=== PATIENT | female | born 1975 | race Caucasian/White ===

== ENCOUNTER 2018-07-31 11:24 | Emergency (ER) | payer OTHER ==
[2018-07-31 12:07] LABS: BILIRUBIN,URINE NEGATIVE (NEGATIVE); GLUCOSE, URINE (UA) NEGATIVE (NEGATIVE); KETONES,URINE (UA) NEGATIVE (NEGATIVE); LEUKOCYTE ESTERASE, URINE TRACE (NEGATIVE); NITRITE,URINE NEGATIVE (NEGATIVE); OCCULT BLOOD,URINE TRACE-LYSE (NEGATIVE); PH,URINE 6.5 PH (5.0-7.5); PROTEIN,URINE NEGATIVE (NEGATIVE); UROBILINOGEN,URINE 0.2 (NORMAL) E.U./dL (NORMAL)
[2018-07-31 12:08] LABS: CLARITY,URINE HAZY (CLEAR)
[2018-07-31 12:13] LABS: HCG UR QUAL NEGATIVE
[2018-07-31 12:19] LABS: BACTERIA,URINE Rare /HPF (None Seen); RBC,URINE 0-5 /HPF (0-5); SQUAMOUS EPITHELIAL CELL,UR RARE Squamous (<= Few)
--- NOTE | 2018-07-31 12:49 | ED Physician Documentation ---
History of Present Illness - Stated complaint Stated Complaint: FEMALE - Chief complaint Chief Complaint: General - History obtained from History obtained from: Patient - History of Present Illness Timing: Yesterday Pain level max: 3 Pain level now: 3 Improved by: nothing Worsened by: urination - Additonal information Additional information: 43-year-old female who presents to the emergency department with dysuria, urinary frequency since yesterday. No fevers. No vomiting. No vaginal bleeding or discharge. No possibility of . Not breast-feeding. Has had UTIs in the past. Review of Systems Constitutional: denies: Fever, Chills Throat: denies: Sore throat Cardiac: denies: Chest pain / pressure Respiratory: denies: Cough GI: denies: Abdominal Pain, Nausea, Vomiting, Diarrhea : reports: Dysuria, Frequency, Hesitancy. denies: Now EGA Skin: denies: Rash Musculoskeletal: denies: Neck pain, Back pain PD PAST MEDICAL HISTORY - Past Medical History Past Medical History: Yes Cardiovascular: None Respiratory: None Neuro: Other Endocrine/Autoimmune: None GI: None TUBE ROOM CASHIER: None : None HEENT: None Psych: None Musculoskeletal: None Derm: None - Past Surgical History Past Surgical History: Yes Ortho: Other /TUBE ROOM CASHIER: section - Present Medications Home Medications: Ambulatory Orders Medication Instructions Recorded Confirmed Nitrofurantoin Monohyd/M-Cryst 100 mg PO BID #10 capsule 07/31/18 [Macrobid 100 mg Capsule] Phenazopyridine HCl [Pyridium] 200 mg PO TID PRN #6 tablet 07/31/18 - Allergies Allergies/Adverse Reactions: Allergies Allergy/AdvReac Type Severity Reaction Status Date / Time Penicillins Allergy Anaphylaxis Verified 07/31/18 11:32 Sulfa (Sulfonamide AdvReac Unknown Verified 07/31/18 11:32 Antibiotics) - Social History Does the pt smoke?: No Smoking Status: Former smoker Does the pt drink ETOH?: No Does the pt have substance abuse?: No - Immunizations Immunizations are current?: Yes - POLST Patient has POLST: No PD ED PE NORMAL - Vitals Vital signs reviewed: Yes - General General: Alert and oriented X 3, No acute distress - HEENT HEENT: Moist mucous membranes - Neck Neck: Supple, no meningeal sign - Cardiac Cardiac: RRR - Respiratory Respiratory: No respiratory distress, Clear bilaterally - Abdomen Abdomen: Soft, Non tender, Non distended - Back Back: No CVA TTP - Derm Derm: Warm and dry - Neuro Neuro: Alert and oriented X 3 Results - Vitals Vitals: Vital Signs - 24 hr 07/31/18 11:30 Temperature 36.1 C L Heart Rate 88 Respiratory 15 Rate Blood Pressure 125/77 O2 Saturation 100 - Labs Labs: Laboratory Tests 07/31/18 11:42 Urine Color YELLOW Urine Clarity HAZY Urine pH 6.5 Ur Specific [place] 1.020 Urine Protein NEGATIVE Urine Glucose (UA) NEGATIVE Urine Ketones NEGATIVE Urine Occult Blood TRACE-LYSE Urine Nitrite NEGATIVE Urine Bilirubin NEGATIVE Urine Urobilinogen 0.2 (NORMAL) Ur Leukocyte Esterase TRACE H Urine RBC 0-5 Urine WBC 11-25 H Ur Squamous Epith Cells RARE Squamous Urine Bacteria Rare Ur Microscopic Review INDICATED Urine Culture Comments INDICATED Urine HCG, Qual NEGATIVE PD MEDICAL DECISION MAKING - ED course Complexity details: reviewed results, considered differential, d/w patient ED course: 43-year-old female with a UTI. Will place on antibiotics. Will follow up with her doctor for further care. She is well-appearing, nontoxic. Afebrile. No evidence of pyelonephritis or sepsis. Patient counseled regarding signs and symptoms for which I believe and urgent re-evaluation would be necessary. Patient with good understanding of and agreement to plan and is comfortable going home at this time This document was made in part using voice recognition software. While efforts are made to proofread this document, sound alike and grammatical errors may occur. Departure - Departure Disposition: 01 Home, Self Care Clinical Impression: UTI (urinary tract infection) Qualifiers: Urinary tract infection type: acute cystitis Hematuria presence: without hematuria Qualified Code(s): N30.00 - Acute cystitis without hematuria Condition: Good Instructions: ED UTI Cystitis Female Follow-Up: your,doctor in 1 week if not better [Other] Prescriptions: Nitrofurantoin Monohyd/M-Cryst [Macrobid 100 mg Capsule] 100 mg PO BID #10 capsule Phenazopyridine HCl [Pyridium] 200 mg PO TID PRN #6 tablet PRN Reason: dysuria Comments: Take all antibiotics until gone. Return if you worsen. Follow-up with your doctor if you are not improved within 1 week
[2018-07-31 13:15] VITALS: BP 127/81
== END 2018-07-31 13:15 | disposition home or self-care (01) ==
LOC: ED 11:24
DX: N30.00 Acute cystitis without hematuria (principal); Z87.891 Personal history of nicotine dependence
CPT/HCPCS: 81001; 81003; 81025; 87086; 99283

== ENCOUNTER 2019-01-07 20:42 | Emergency (ER) | payer OTHER ==
[2019-01-07] MEDS ORDERED: SODIUM CHLORIDE 0.9% 1,000 ML IV ONE (20:58)
--- NOTE | 2019-01-07 21:03 | ED Physician Documentation ---
PD HPI ABD PAIN - Stated complaint Stated Complaint: R SIDE/GROIN PAIN - Chief complaint Chief Complaint: Abd Pain - History obtained from History obtained from: Patient - History of Present Illness Timing - onset: Today Timing - duration: Hours (6) Timing - details: Abrupt onset Pain level max: 10 Pain level now: 8 Quality: Pain Radiation: Right flank (Radiates to the right lower quadrant.) Improved by: Laying still Associated symptoms: Nausea, Diarrhea, Dizzy. No: Fever, Vomiting, Dysuria, Hematuria, Chest pain, Near syncope / syncope, Vaginal bleeding Recently seen: Not recently seen - Additional information Additional information: This is a 43-year-old woman who presents with her complains that she was laying in bed on her left side went to turn of the right side had a sudden onset of excruciating pain in the right flank area that wrapped around quickly and radiated down into the right lower quadrant. This occurred around 3:00 this afternoon was a 10 out of 10 but is now down to 7-8 out of 10 and is just been waxing and waning since it started. She thought she might have to have a bowel movement so she went into the bathroom had some mild diarrhea but did not see any blood in it and the pain did not lessen. She is been nauseous but no vomiting. No dysuria or hematuria. She denies stating her last menstrual period was 9 days ago. She has had prior C-sections and removals of neuroma but no other abdominal surgery. She did not take anything for the pain today. Review of Systems Constitutional: denies: Fever Throat: denies: Sore throat Cardiac: denies: Chest pain / pressure, Palpitations Respiratory: denies: Dyspnea, Cough GI: reports: Abdominal Pain, Nausea, Diarrhea. denies: Vomiting, Bloody / black stool : denies: Dysuria, Frequency, Hematuria Skin: denies: Rash Musculoskeletal: reports: Back pain PD PAST MEDICAL HISTORY - Past Medical History Cardiovascular: None Respiratory: None Neuro: Other Endocrine/Autoimmune: None GI: None U.S. REPRESENTATIVE: None : None HEENT: None Psych: None Musculoskeletal: None Derm: None - Past Surgical History Past Surgical History: Yes Ortho: Other /U.[employer]. REPRESENTATIVE: section - Present Medications Home Medications: Ambulatory Orders Medication Instructions Recorded Confirmed Hydrocodone/Acetaminophen 1 - 2 each PO Q6H PRN #14 tablet 01/07/19 [Hydrocodon-Acetaminophen 5-325] Tamsulosin [Flomax] 0.4 mg PO DAILY #10 capsule 01/07/19 - Allergies Allergies/Adverse Reactions: Allergies Allergy/AdvReac Type Severity Reaction Status Date / Time Penicillins Allergy Anaphylaxis Verified 01/07/19 20:54 Sulfa (Sulfonamide AdvReac Unknown Verified 01/07/19 20:54 Antibiotics) - Social History Does the pt smoke?: No Smoking Status: Former smoker Does the pt drink ETOH?: No Does the pt have substance abuse?: No - Immunizations Immunizations are current?: Yes - POLST Patient has POLST: No PD ED PE NORMAL - Vitals Vital signs reviewed: Yes - General General: Alert and oriented X 3, No acute distress, Well developed/nourished - HEENT HEENT: Atraumatic, PERRL, Moist mucous membranes - Cardiac Cardiac: RRR, No murmur - Respiratory Respiratory: No respiratory distress, Clear bilaterally - Abdomen Abdomen: Normal bowel sounds, Other (Tenderness with some guarding voluntary in the right upper and lower quadrants.) - Derm Derm: Normal color, No rash - Extremities Extremities: No deformity, No edema - Neuro Neuro: Alert and oriented X 3, recreation therapy teacher 2-12 intact, No motor deficit, No sensory deficit, Normal speech - Psych Psych: Normal mood, Normal affect Results - Vitals Vitals: Vital Signs - 24 hr 01/07/19 20:50 Temperature 37 C Heart Rate 72 Respiratory 16 Rate Blood Pressure 142/90 H O2 Saturation 100 Oxygen O2 Source Room air - Labs Labs: Laboratory Tests 01/07/19 01/07/19 01/07/19 21:00 21:00 21:05 WBC 13.3 H RBC 4.64 Hgb 13.1 Hct 39.3 MCV 84.7 MCH 28.2 MCHC 33.2 RDW 13.9 Plt Count 301 MPV 7.1 L Neut # (Auto) 10.1 H Lymph # (Auto) 2.4 Addison # (Auto) 0.6 Eos # (Auto) 0.1 Baso # (Auto) 0.1 Absolute Nucleated RBC 0.00 Nucleated RBC % 0.0 Sodium 138 Potassium 3.9 Chloride 101 Carbon Dioxide 22 Anion Gap 15.0 H BUN 12 Creatinine 0.9 Estimated GFR (MDRD) 68 L Glucose 137 H Calcium 9.7 Total Bilirubin 0.6 AST 44 H ALT 47 Alkaline Phosphatase 69 Total Protein 7.7 Albumin 4.4 Globulin 3.3 Albumin/Globulin Ratio 1.3 Lipase 31 Urine Color YELLOW Urine Clarity CLEAR Urine pH 6.0 Ur Specific [place] 1.020 Urine Protein NEGATIVE Urine Glucose (UA) NEGATIVE Urine Ketones NEGATIVE Urine Occult Blood TRACE-LYSE Urine Nitrite NEGATIVE Urine Bilirubin NEGATIVE Urine Urobilinogen 0.2 (NORMAL) Ur Leukocyte Esterase NEGATIVE Ur Microscopic Review NOT INDICATED Urine Culture Comments NOT INDICATED Urine HCG, Qual 01/07/19 21:05 WBC RBC Hgb Hct MCV MCH MCHC RDW Plt Count MPV Neut # (Auto) Lymph # (Auto) Addison # (Auto) Eos # (Auto) Baso # (Auto) Absolute Nucleated RBC Nucleated RBC % Sodium Potassium Chloride Carbon Dioxide Anion Gap BUN Creatinine Estimated GFR (MDRD) Glucose Calcium Total Bilirubin AST ALT Alkaline Phosphatase Total Protein Albumin Globulin Albumin/Globulin Ratio Lipase Urine Color Urine Clarity Urine pH Ur Specific [place] 1.020 Urine Protein Urine Glucose (UA) Urine Ketones Urine Occult Blood Urine Nitrite Urine Bilirubin Urine Urobilinogen Ur Leukocyte Esterase Ur Microscopic Review Urine Culture Comments Urine HCG, Qual NEGATIVE PD MEDICAL DECISION MAKING - ED course Complexity details: re-evaluated patient, d/w patient, d/w family ED course: 2154: Patient's pain is down to about a 3 out of 10 after 30 of Toradol and 4 of Zofran. She has not vomited. She still feels the urge to urinate in fact was up to the bathroom again. Her white counts minimally elevated at 13.2. Chemistries are normal. Her urine is clear and test is negative. She has right costovertebral angle tenderness and on discussed with her the options of CT scanning with or without contrast and I think that scanning without contrast is the most reasonable plan at this time. She is in agreement. 224: CT scan did confirm a stone at the right UVJ with mild hydronephrosis. There is some perinephric stranding. The patient does not have a significant white blood cell count or fever. She will be discharged with hydrocodone and Zofran prepacks. She is also given some doses of Flomax. Prescriptions for hydrocodone and instructions to take ibuprofen [id number]. Strain the urine save the stone if it has passed. Follow-up with your primary care provider if she has continued pain or has not passed a stone in 2 weeks return if worse. Departure - Departure Disposition: 01 Home, Self Care Clinical Impression: Renal colic on right side Condition: Good Instructions: ED Stone Renal W Colic Follow-Up: Ruth Vidal MD [Primary Care Provider] - Prescriptions: Hydrocodone/Acetaminophen [Hydrocodon-Acetaminophen 5-325] 1 - 2 each PO Q6H PRN #14 tablet PRN Reason: pain Tamsulosin [Flomax] 0.4 mg PO DAILY #10 capsule Comments: Be sure to drink plenty of water. Take the Flomax daily for up to 10 days until the stone has passed. Take ibuprofen 3 to 4 tablets every 8 hours [id number] with food. May use hydrocodone if needed for pain but do not drive or operate machinery if you are taking that medication. Do not take additional Tylenol with it. Strain your urine and save the stone if passed. Follow-up with your primary care provider for recheck after passing the stone or if you do not pass the stone in 2 weeks. Return to the emergency department if you have increasing pain that is not controlled with the pain medications, you are vomiting and cannot keep anything down, you develop fever or are not urinating.
[2019-01-07 21:04] LABS: BASOPHILS # (AUTO) 0.1 10^3/uL (0.0-0.1); BASOPHILS % (AUTO) 0.5 %; EOSINOPHILS # (AUTO) 0.1 10^3/uL (0.0-0.7); EOSINOPHILS % (AUTO) 0.5 %; HGB - HEMOGLOBIN 13.1 g/dL (12.0-16.0); LYMPHOCYTES # (AUTO) 2.4 10^3/uL (1.5-3.5); LYMPHOCYTES % (AUTO) 18.1 %; MEAN CORPUSCULAR HEMOGLOBIN 28.2 pg (27.0-31.0); MEAN CORPUSCULAR HGB CONC 33.2 g/dL (32.0-36.0); MEAN CORPUSCULAR VOLUME 84.7 fL (81.0-99.0); MEAN PLATELET VOLUME 7.1 fL (7.9-10.8); MONOCYTES # (AUTO) 0.6 10^3/uL (0.0-1.0); MONOCYTES % (AUTO) 4.8 %; NEUTROPHILS # (AUTO) 10.1 10^3/uL (1.5-6.6); NEUTROPHILS % (AUTO) 76.1 %; PLT - PLATELET COUNT 301 10^3/uL (130-450); RED BLOOD COUNT 4.64 10^6/uL (4.20-5.40); RED CELL DISTRIBUTION WIDTH 13.9 % (12.0-15.0); WHITE BLOOD COUNT 13.3 x10^3/uL (4.8-10.8)
[2019-01-07 21:11] LABS: BILIRUBIN,URINE NEGATIVE (NEGATIVE); GLUCOSE, URINE (UA) NEGATIVE (NEGATIVE); KETONES,URINE (UA) NEGATIVE (NEGATIVE); LEUKOCYTE ESTERASE, URINE NEGATIVE (NEGATIVE); NITRITE,URINE NEGATIVE (NEGATIVE); OCCULT BLOOD,URINE TRACE-LYSE (NEGATIVE); PROTEIN,URINE NEGATIVE (NEGATIVE); UROBILINOGEN,URINE 0.2 (NORMAL) E.U./dL (NORMAL)
[2019-01-07 21:17] LABS: ALBUMIN 4.4 g/dL (3.2-5.5); ALBUMIN/GLOBULIN RATIO 1.3 (1.0-2.2); BILIRUBIN,TOTAL 0.6 mg/dL (0.2-1.0); CALCIUM 9.7 mg/dL (8.5-10.3); CREATININE 0.9 mg/dL (0.4-1.0); TOTAL PROTEIN 7.7 g/dL (6.7-8.2)
[2019-01-07 21:17] LABS: CLARITY,URINE CLEAR (CLEAR)
[2019-01-07 21:19] LABS: HCG UR QUAL NEGATIVE
[2019-01-07] MEDS ORDERED: KETOROLAC 30 MG/ML VIAL IVP STA (21:24)
[2019-01-07] MEDS ORDERED: ONDANSETRON 4 MG/2 ML VIAL IVP STA (21:24)
--- NOTE | 2019-01-07 22:28 | CT Report ---
Reason: R flank pain, r/o kidney stone Procedure Date: 01/07/2019 Accession Number: [id number] / [id number] Procedure: CT - Abdomen/Pelvis WO CPT Code: FULL RESULT: EXAM: CT ABDOMEN AND PELVIS (CT KUB) WITHOUT CONTRAST. EXAM DATE: 01/07/2019 10:08 PM. CLINICAL HISTORY: Right flank pain, rule out kidney stone. COMPARISONS: None. TECHNIQUE: Routine axial helical CT imaging was performed through the abdomen and pelvis without IV contrast. Reconstructions: Coronal and sagittal. In accordance with CT protocol optimization, one or more of the following dose reduction techniques were utilized for this exam: automated exposure control, adjustment of mA and/or KV based on patient size, or use of iterative reconstructive technique. FINDINGS: Lung Bases: Unremarkable. Right Kidney/Ureter: There is a 2 mm stone at the vesicoureteral junction resulting in mild hydroureteronephrosis and perinephric stranding. No additional stones seen. Left Kidney/Ureter: No stones, hydronephrosis, or hydroureter. No perinephric fat stranding. Other Solid Organs: Noncontrast images of the solid organs are grossly unremarkable. Gallbladder/Bile Ducts: Unremarkable. Peritoneal Cavity: No free fluid, free air or tosha adenopathy. Bowel is grossly unremarkable. The appendix is normal. Pelvic Organs: No bladder stones or wall thickening. Noncontrast images of the visualized pelvic organs are unremarkable. Vasculature: Unremarkable. Other: None. IMPRESSION: 1. Mildly obstructing 2 mm right vesicoureteral junction stone. RADIA
[2019-01-07] MEDS ORDERED: HYDROcod/ACETAM 5/325 MG TABLET PO STA (22:40)
[2019-01-07] MEDS ORDERED: TAMSULOSIN 0.4 MG CAPSULE PO STA (22:40)
[2019-01-07] MEDS ORDERED: HYDROcod/ACET 5/325 Prepack 4 PO STA (22:41)
[2019-01-07] MEDS ORDERED: ONDANSETRON ODT 4 MG Prepack 2 TL PRN (22:42)
[2019-01-07 22:54] VITALS: BP 137/64
== END 2019-01-07 22:59 | disposition home or self-care (01) ==
LOC: ED 20:42
DX: N13.2 Hydronephrosis with renal and ureteral calculous obstruction (principal); Z87.891 Personal history of nicotine dependence
CPT/HCPCS: 36415; 74176; 80053; 81003; 81025; 83690; 85025; 96361; 96374; 99283; 99284; A9270; 81001; 87086

== ENCOUNTER 2019-09-10 13:55 | Outpatient (CLI) | payer OTHER ==
--- NOTE | 2019-09-11 13:21 | XRAY Report ---
Reason: DYSPHAGIA Procedure Date: 09/10/2019 Accession Number: [id number] / [id number] Procedure: FL - Modified Barium Swallow W/SP CPT Code: Final Report FULL RESULT: EXAM: MODIFIED BARIUM SWALLOW EXAM DATE: 09/10/2019 02:30 PM. CLINICAL HISTORY: DYSPHAGIA. COMPARISON: None. TECHNIQUE: Under the direction of speech pathology, patient swallowed various consistencies of barium under lateral fluoroscopic observation of the neck. Fluoroscopy Time: 1 minute 6 seconds. Number of Images: 110. FINDINGS: Swallowing Mechanism: Normal oral phase and swallowing reflex. Airway Protection: Normal epiglottic motion. No episodes of tracheal penetration or aspiration with all consistencies of barium. Pharynx: Normal. No significant vallecular or piriform sinus contrast pooling. Other: None. IMPRESSION: Normal modified barium swallow. No aspiration identified. See formal speech pathology report. RADIA
== END 2019-09-10 13:56 | disposition home or self-care (01) ==
LOC: DI 13:55
PROVIDERS: ATTEND Otolaryngology Facial Plastic Surgery
DX: R13.19 Other dysphagia (principal)
CPT/HCPCS: 74230

== ENCOUNTER 2019-09-25 16:42 | Outpatient (CLI) | payer OTHER ==
--- NOTE | 2019-10-07 14:25 | Mammography Report ---
Reason: ROUTINE SCREENING Procedure Date: 09/25/2019 Accession Number: [id number] / [id number] Procedure: DONNA - Screening Mammo Dig Bilat CPT Code: Final Report FULL RESULT: EXAM: Screening Mammo Dig Bilat DATE: 09/25/2019 5:08 PM CLINICAL HISTORY: Screening encounter. TECHNIQUE: (B) - Bilateral CC and MLO views were obtained. COMPARISON: 12/11/2017 through 09/09/2015. PARENCHYMAL PATTERN: (A) - The breast(s) demonstrate(s) scattered fibroglandular densities. FINDINGS: There are no suspicious masses, calcifications, or areas of distortion. IMPRESSION: Negative examination. BI-RADS category 1. RECOMMENDATION: (ANNUAL) - Recommend routine annual screening mammography. BI-RADS CATEGORY: (1) - Negative. STANDARD QUALIFYING STATEMENTS: 1. This examination was not reviewed with the aid of Computer-Aided Detection (CAD). 2. A negative or benign imaging report should not preclude biopsy if clinically suspicious findings are present. 3. Dense breasts may obscure an underlying neoplasm. 4. This examination was reviewed without the aid of 3D breast imaging (tomosynthesis).
== END 2019-09-25 16:43 | disposition home or self-care (01) ==
LOC: DI 16:42
DX: Z12.31 Encounter for screening mammogram for malignant neoplasm of breast (principal)
CPT/HCPCS: 77067

== ENCOUNTER 2019-10-11 16:00 | Outpatient (CLI) | payer OTHER ==
[2019-10-11 16:12] LABS: BASOPHILS # (AUTO) 0.1 10^3/uL (0.0-0.1); BASOPHILS % (AUTO) 0.5 %; EOSINOPHILS # (AUTO) 0.2 10^3/uL (0.0-0.7); EOSINOPHILS % (AUTO) 1.8 %; HGB - HEMOGLOBIN 13.7 g/dL (12.0-16.0); LYMPHOCYTES # (AUTO) 2.8 10^3/uL (1.5-3.5); LYMPHOCYTES % (AUTO) 23.9 %; MEAN CORPUSCULAR HEMOGLOBIN 28.4 pg (27.0-31.0); MEAN CORPUSCULAR HGB CONC 32.4 g/dL (32.0-36.0); MEAN CORPUSCULAR VOLUME 87.6 fL (81.0-99.0); MEAN PLATELET VOLUME 9.2 fL (7.9-10.8); MONOCYTES # (AUTO) 0.8 10^3/uL (0.0-1.0); NEUTROPHILS # (AUTO) 7.7 10^3/uL (1.5-6.6); NEUTROPHILS % (AUTO) 66.5 %; PLT - PLATELET COUNT 301 10^3/uL (130-450); RED BLOOD COUNT 4.83 10^6/uL (4.20-5.40); RED CELL DISTRIBUTION WIDTH 13.2 % (12.0-15.0); WHITE BLOOD COUNT 11.5 x10^3/uL (4.8-10.8)
== END 2019-10-11 16:01 | disposition home or self-care (01) ==
LOC: LAB 16:00
PROVIDERS: ATTEND Obstetrics & Gynecology
DX: Z01.812 Encounter for preprocedural laboratory examination (principal); N84.1 Polyp of cervix uteri
CPT/HCPCS: 36415; 81025; 85025; 86850; 86900; 86901

== ENCOUNTER 2019-10-13 08:48 | Day surgery (SDC) | payer OTHER ==
[~2019-10-13 08:48] MED LIST: DEXAMETHASONE 4 MG/ML VIAL IVP ONE; KETOROLAC 30 MG/ML VIAL IVP ONE; LIDOCAINE-MPF 2% 5 ML VIAL IM ONE; MIDAZOLAM 2 MG/2 ML VIAL IVP ONE; ONDANSETRON 4 MG/2 ML VIAL IVP ONE; PROPOFOL 200 MG/20 ML VIAL IVP ONE; ePHEDrine 50 MG/ML VIAL IVP ONE; fentaNYL 100 MCG/2 ML VIAL IVP ONE
--- NOTE | 2019-10-13 09:33 | ANESTHESIA ---
Pre-Anesthesia VS, & Labs - Diagnosis uterine polyp - Procedure myosure hysteroscopy, D&C, polypectomy Vital Signs: Temp Pulse Resp BP Pulse Ox 36.5 C 98 14 140/87 H 100 10/13/19 08:53 10/13/19 08:53 10/13/19 08:53 10/13/19 08:53 10/13/19 08:53 Height 6 ft 1 in Weight (kg) 93.4 kg Body Mass Index 27.0 - NPO >8 hours - Is Patient ?: Waiver signed Home Medications and Allergies Home Medications: Ambulatory Orders No Known Home Medications 10/10/19 No Known Home Medications 10/10/19 Allergies/Adverse Reactions: Allergies Allergy/AdvReac Type Severity Reaction Status Date / Time Penicillins Allergy Anaphylaxis Verified 10/10/19 12:06 Sulfa (Sulfonamide Allergy Rash Verified 10/10/19 12:06 Antibiotics) Anes History & Medical History - Anesthetic History Anesthesia Complications: reports: Post-Operative Nausea/Vomiting (only after ankle surgery, otherwise no issues) Family history of Anesthesia Complications: Denies Family history of Malignant Hyperthermia: Denies - Medical History Cardiovascular: reports: None Pulmonary: reports: None Gastrointestinal: reports: None Urinary: reports: None Neuro: reports: Other Musculoskeletal: reports: None Endocrine/Autoimmune: reports: None Blood Disorders: reports: None Skin: reports: None Smoking Status: Former smoker - Surgical History Gynecologic: section, Dilation and currettage Orthopedic: Other Exam General: Alert, Oriented x3, Cooperative Dental: WNL Mouth Openin Fingerbreadth Neck Mobility: Normal Mallampati classification: II Thyromental Distance: 4-6 cm Respiratory: Lungs clear, Normal breath sounds, No respiratory distress Cardiovascular: Regular rate Neurological: Normal speech Mental/Cognitive Status: Alert/Oriented X3, Normal for patient Cognitive Status: Within normal limits Plan Anesthesia Type: General Consent for Procedure(s) Verified and Reviewed: Yes Code Status: Attempt Resuscitation ASA classification: 1-Healthy patient Is this case an emergency?: No
[2019-10-13] MEDS ORDERED: SILVER NITRATE APPLICATOR TOP ONE (10:21)
[2019-10-13] MEDS ORDERED: LIDOCAINE 1%-EPI 1:100000 20 ML MDV ONE (10:26)
[2019-10-13] MEDS ORDERED: LACTATED RINGERS 1,000 ML IV ONE ×2 (11:20→12:16)
[2019-10-13] MEDS ORDERED: oxyCODONE 5 MG TABLET PO PRN (12:11)
[2019-10-13] MEDS ORDERED: HYDROmorphone 0.5 MG/0.5 ML SYRINGE IVP PRN (12:11)
[2019-10-13] MEDS ORDERED: ONDANSETRON 4 MG/2 ML VIAL IVP PRN (12:11)
--- NOTE | 2019-10-13 12:14 | OPERATIVE REPORT ---
Operative Report - General Procedure Date: 10/13/19 Planned Procedure: operative hysteroscopy with polypectomy, dilation and curettage Pre-Op Diagnosis: uterine polyp Procedure Performed: same as above Post Op Diagnosis: same as above, removed - Procedure Note Primary Surgeon: Carolynn Quick Anesthesia Provider: Sadia Santos Anesthesia Technique: General LMA Pathology: uterine polyp IV Fluids (mL): 500 Estimated Blood Loss (mL): 5 Urine Output (mL): 0 Indications: uterine polyp, abnormal uterine bleeding Findings: small uterine polyp along anterior right wall of uterus. Resected with Myosure under hysteroscopic visualization. Curettings obtained at conclusion. Fluid deficit 700 mL Complications: none - Other Other Information/Narrative: Procedure: After informed consent was assured, the patient was taken to the operating room where anesthesia was induced. Patient was placed in high dorsal lithotomy using yellow fin stirrups. The patient was prepped and draped in the usual sterile fashion. Hysteroscopy equipment was set up and white balanced. A surgical timeout was performed. A speculum was inserted into the vagina, and a tenaculum was placed on the anterior lip of the cervix. A paracervical block was performed with 1% lidocaine with epinephrine. Hanks dilators were used to dilate the cervix up to 14 syriac. The hysteroscope light was turned on and fluids were run through. The hysteroscope was passed through the cervix into the endometrial cavity, which was gently distended with fluid. A small polyp was noted along the right anterior uterine wall. The Myosure operative morcellator was passed through the operative sheath into the cavity and used to morcellate t he polyp under suction. The cavity appeared largely smooth at conclusion but there seemed to be some stalk remaining and the fluid deficit had increased to 700 mL. The hysteroscope was withdrawn. A Toño-Stone forceps were introduced to the fundus and used to grasp the remaining polyp tissue and removed with a gentle twisting motion. A curette was then inserted to the fundus and withdrawn along all surfaces of the uterus, achieving good uterine cri. The tenaculum was removed from the cervix with good hemostasis observed. All instruments were removed from the vagina, and a repeat bimanual exam revealed a small firm uterus and no instruments in the vaginal vault. The pt was taken to PACU in stable condition.
[2019-10-13 13:44] VITALS: BP 121/74
== END 2019-10-13 08:49 | disposition home or self-care (01) ==
LOC: SDS 08:48
PROVIDERS: ATTEND Obstetrics & Gynecology
PROC: 0UDB7ZX Extraction of Endometrium, Via Natural or Artificial Opening, Diagnostic (ICD-10-PCS; 2019-10-13)
PROC: 0UB98ZZ Excision of Uterus, Via Natural or Artificial Opening Endoscopic (ICD-10-PCS; principal; 2019-10-13 10:00)
DX: N84.0 Polyp of corpus uteri (principal); Z87.891 Personal history of nicotine dependence

== ENCOUNTER 2019-12-27 13:56 | Emergency (ER) | payer OTHER ==
--- NOTE | 2019-12-27 14:20 | ED Physician Documentation ---
PD HPI FEMALE - Stated complaint Stated Complaint: FEMALE - Chief complaint Chief Complaint: Abd Pain - History obtained from History obtained from: Patient - History of Present Illness Timing - onset: Other ([place] This was done for an endometrial polyp and heavy bleeding. She did well after that, but about a month ago and much more heavily over the last 2-1/2 weeks she has had significant vaginal bleeding every day. There is no pain or cramping with it. There is no possibility of , her had a vasectomy. She is on no other form of control, but had heavy bleeding with oral contraceptive pills at age 19.) Review of Systems Ten Systems: 10 systems reviewed and negative Constitutional: reports: Fatigue. denies: Weight Loss Cardiac: denies: Chest pain / pressure, Palpitations Respiratory: denies: Dyspnea, Cough GI: denies: Abdominal Pain, Nausea, Vomiting, Diarrhea PD PAST MEDICAL HISTORY - Past Medical History Cardiovascular: None Respiratory: None Neuro: Other Endocrine/Autoimmune: None GI: None SODA FOUNTAIN OPERATOR: None : None HEENT: None Psych: None Musculoskeletal: None Derm: None - Past Surgical History Past Surgical History: Yes Ortho: Other /SODA FOUNTAIN OPERATOR: section, Dilation and currettage - Present Medications Home Medications: Ambulatory Orders Medication Instructions Recorded Confirmed Estradiol Valerate/Dienogest 1 each PO DAILY #1 packet 12/27/19 [Natazia 28 Tablet] - Allergies Allergies/Adverse Reactions: Allergies Allergy/AdvReac Type Severity Reaction Status Date / Time Penicillins Allergy Anaphylaxis Verified 12/27/19 14:05 Sulfa (Sulfonamide Allergy Rash Verified 12/27/19 14:05 Antibiotics) - Social History Does the pt smoke?: No Smoking Status: Former smoker Does the pt drink ETOH?: No Does the pt have substance abuse?: No - Immunizations Immunizations are current?: Yes - POLST Patient has POLST: No PD ED PE NORMAL - Vitals Vital signs reviewed: Yes - General General: Alert and oriented X 3, No acute distress - Abdomen Abdomen: Normal bowel sounds, Soft, Non tender - Female Female : Deferred (As her completion engineer has performed one recently; We discussed this and she was agreeable to avoiding a pelvic today.) - Neuro Neuro: Alert and oriented X 3, Normal speech Results - Vitals Vitals: Vital Signs - 24 hr 05/23/20 05/23/20 14:02 15:18 Temperature 36.7 C Heart Rate 89 80 Respiratory 20 18 Rate Blood Pressure 134/85 H 107/73 O2 Saturation 100 100 Oxygen O2 Source Room air - Labs Labs: Laboratory Tests 12/27/19 12/27/19 12/27/19 14:00 14:15 14:15 WBC 11.2 H RBC 4.03 L Hgb 12.0 Hct 36.3 L MCV 90.1 MCH 29.8 MCHC 33.1 RDW 13.3 Plt Count 324 MPV 8.9 Neut # (Auto) 6.8 H Lymph # (Auto) 3.5 Trigg # (Auto) 0.5 Eos # (Auto) 0.2 Baso # (Auto) 0.1 Absolute Nucleated RBC 0.00 Nucleated RBC % 0.0 Sodium Potassium Chloride Carbon Dioxide Anion Gap BUN Creatinine Estimated GFR (MDRD) Glucose Calcium Urine Color YELLOW Urine Clarity CLEAR Urine pH 8.0 H Ur Specific [place] 1.015 Urine Protein NEGATIVE Urine Glucose (UA) NEGATIVE Urine Ketones NEGATIVE Urine Occult Blood MODERATE H Urine Nitrite NEGATIVE Urine Bilirubin NEGATIVE Urine Urobilinogen 0.2 (NORMAL) Ur Leukocyte Esterase NEGATIVE Urine RBC 0-5 Urine WBC 0-3 Ur Squamous Epith Cells NONE SEEN Urine Bacteria None Seen Ur Microscopic Review INDICATED Urine Culture Comments NOT INDICATED Urine HCG, Qual NEGATIVE Blood Type A POSITIVE Antibody Screen NEGATIVE 12/27/19 14:15 WBC RBC Hgb Hct MCV MCH MCHC RDW Plt Count MPV Neut # (Auto) Lymph # (Auto) Trigg # (Auto) Eos # (Auto) Baso # (Auto) Absolute Nucleated RBC Nucleated RBC % Sodium 138 Potassium 3.6 Chloride 102 Carbon Dioxide 26 Anion Gap 10.0 BUN 10 Creatinine 0.7 Estimated GFR (MDRD) 91 Glucose 105 H Calcium 9.0 Urine Color Urine Clarity Urine pH Ur Specific [place] Urine Protein Urine Glucose (UA) Urine Ketones Urine Occult Blood Urine Nitrite Urine Bilirubin Urine Urobilinogen Ur Leukocyte Esterase Urine RBC Urine WBC Ur Squamous Epith Cells Urine Bacteria Ur Microscopic Review Urine Culture Comments Urine HCG, Qual Blood Type Antibody Screen PD MEDICAL DECISION MAKING - ED course ED course: 44-year-old woman with abnormal uterine bleeding after the polypectomy. Her H&H is dropped only slightly from her baseline. She is not . We discussed her prior ultrasound, she was not aware of any abnormal findings other than the polyp, no known fibroids. We discussed options for treatment. She did not want to do an IUD. She seems fairly low risk for thromboembolism, does not smoke but her age is getting into the borderline range. Her mom did have a history of venous thromboembolism but we do not know about any genetic cause. She is never had one. After discussion of other options she opted for an estrogen progestin combination and plans to see her completion engineer this week. Departure - Departure Disposition: 01 Home, Self Care Clinical Impression: Abnormal uterine bleeding Condition: Good Record reviewed to determine appropriate education?: Yes Instructions: ED Bleed Irregular Vaginal Prescriptions: Estradiol Valerate/Dienogest [Natazia 28 Tablet] 1 each PO DAILY #1 packet Comments: Follow-up with your completion engineer on Sunday, take the prescription for the new control pill with you. Try to stay active during this time taking walks several times a day and staying hydrated. Return for new or worsening symptoms. Discharge Date/Time: 12/27/19 15:18
[2019-12-27 14:24] LABS: BASOPHILS # (AUTO) 0.1 10^3/uL (0.0-0.1); BASOPHILS % (AUTO) 0.7 %; EOSINOPHILS # (AUTO) 0.2 10^3/uL (0.0-0.7); EOSINOPHILS % (AUTO) 1.9 %; LYMPHOCYTES # (AUTO) 3.5 10^3/uL (1.5-3.5); MEAN CORPUSCULAR HEMOGLOBIN 29.8 pg (27.0-31.0); MEAN CORPUSCULAR HGB CONC 33.1 g/dL (32.0-36.0); MEAN CORPUSCULAR VOLUME 90.1 fL (81.0-99.0); MEAN PLATELET VOLUME 8.9 fL (7.9-10.8); MONOCYTES # (AUTO) 0.5 10^3/uL (0.0-1.0); MONOCYTES % (AUTO) 4.8 %; NEUTROPHILS # (AUTO) 6.8 10^3/uL (1.5-6.6); NEUTROPHILS % (AUTO) 61.1 %; PLT - PLATELET COUNT 324 10^3/uL (130-450); RED BLOOD COUNT 4.03 10^6/uL (4.20-5.40); RED CELL DISTRIBUTION WIDTH 13.3 % (12.0-15.0); WHITE BLOOD COUNT 11.2 x10^3/uL (4.8-10.8)
[2019-12-27 14:34] LABS: BILIRUBIN,URINE NEGATIVE (NEGATIVE); GLUCOSE, URINE (UA) NEGATIVE (NEGATIVE); KETONES,URINE (UA) NEGATIVE (NEGATIVE); LEUKOCYTE ESTERASE, URINE NEGATIVE (NEGATIVE); NITRITE,URINE NEGATIVE (NEGATIVE); OCCULT BLOOD,URINE MODERATE (NEGATIVE); PROTEIN,URINE NEGATIVE (NEGATIVE); UROBILINOGEN,URINE 0.2 (NORMAL) E.U./dL (NORMAL)
[2019-12-27 14:37] LABS: CLARITY,URINE CLEAR (CLEAR); HCG UR QUAL NEGATIVE
[2019-12-27 14:42] LABS: BACTERIA,URINE None Seen /HPF (None Seen); RBC,URINE 0-5 /HPF (0-5); SQUAMOUS EPITHELIAL CELL,UR NONE SEEN (<= Few)
[2019-12-27 15:12] LABS: CREATININE 0.7 mg/dL (0.4-1.0)
[2019-12-27 15:19] VITALS: BP 107/73
== END 2019-12-27 15:18 | disposition home or self-care (01) ==
LOC: ED 13:56
DX: N93.8 Other specified abnormal uterine and vaginal bleeding (principal); Z87.891 Personal history of nicotine dependence
CPT/HCPCS: 36415; 80048; 81001; 81003; 81025; 85025; 86850; 86900; 86901; 87086; 99283

== ENCOUNTER 2020-02-14 07:52 | Emergency (ER) | payer OTHER ==
[2020-02-14 08:08] VITALS: BP 139/66
--- NOTE | 2020-02-14 08:41 | ED Physician Documentation ---
PD HPI HEENT - Stated complaint Stated Complaint: SORE THROAT - Chief complaint Chief Complaint: Heent - History obtained from History obtained from: Patient - History of Present Illness Timing - onset: How many days ago (3) Timing - duration: Days (3) Timing - details: Gradual onset, Still present Location: Throat Improves: Medication Worsens: Swalllowing Associated symptoms: Fever. No: Cough Similar symptoms before: Has not had sx before Recently seen: Not recently seen - Additional information Additional information: Previously well 44-year-old female who works at [employer] has developed a sore throat about 4 days ago she had a fever associated with this for 1 day. She has not had fever since she has worsening pain in her throat she was able to sleep last night. She has mostly pain when she swallows she is got some swelling to the uvula and some white stuff on the back of her throat. Review of Systems Constitutional: reports: Fever Eyes: denies: Decreased vision Ears: denies: Ear pain Nose: denies: Rhinorrhea / runny nose, Congestion Throat: reports: Sore throat Cardiac: denies: Chest pain / pressure, Palpitations Respiratory: denies: Dyspnea, Cough GI: denies: Nausea, Vomiting : denies: Dysuria, Frequency PD PAST MEDICAL HISTORY - Past Medical History Past Medical History: Yes Cardiovascular: None Respiratory: None Neuro: None, Other Endocrine/Autoimmune: None GI: None LOT TECHNICIAN: None : None HEENT: None Psych: None Musculoskeletal: None Derm: None Other Past Medical History: Vertigo - Past Surgical History Past Surgical History: Yes General: EGD Ortho: Other /LOT TECHNICIAN: section, Dilation and currettage - Present Medications Home Medications: Ambulatory Orders Medication Instructions Recorded Confirmed cefUROXime axetiL [Ceftin] 500 mg PO Q12H #20 tablet 02/14/20 - Allergies Allergies/Adverse Reactions: Allergies Allergy/AdvReac Type Severity Reaction Status Date / Time Penicillins Allergy Anaphylaxis Verified 02/14/20 08:02 Sulfa (Sulfonamide Allergy Rash Verified 02/14/20 08:02 Antibiotics) - Social History Does the pt smoke?: No Smoking Status: Never smoker Does the pt drink ETOH?: No Does the pt have substance abuse?: No - Immunizations Immunizations are current?: Yes - POLST Patient has POLST: No PD ED PE NORMAL - Vitals Vital signs reviewed: Yes (normal ) - General General: Alert and oriented X 3, No acute distress, Well developed/nourished - HEENT HEENT: Atraumatic, PERRL, EOMI, Ears normal, Moist mucous membranes, Other (There is swelling to the uvula with inflamation present with exudate mild. ) - Neck Neck: Supple, no meningeal sign, No bony TTP - Cardiac Cardiac: RRR, No murmur - Respiratory Respiratory: No respiratory distress, Clear bilaterally - Abdomen Abdomen: Normal bowel sounds, Soft, Non tender, Non distended, No organomegaly - Back Back: No CVA TTP, No spinal TTP - Derm Derm: Normal color, Warm and dry, No rash - Extremities Extremities: No deformity, No edema, No calf tenderness / cord - Neuro Neuro: Alert and oriented X 3, splunk developer 2-12 intact, No motor deficit, No sensory deficit, Normal speech Eye Opening: Spontaneous Motor: Obeys Commands Verbal: Oriented GCS Score: 15 - Psych Psych: Normal mood, Normal affect Results - Vitals Vitals: Vital Signs - 24 hr 02/14/20 08:00 Temperature 36.8 C Heart Rate 86 Respiratory 16 Rate Blood Pressure 139/66 H O2 Saturation 100 Oxygen O2 Source Room air - Labs Labs: Laboratory Tests 02/14/20 08:35 Group A Strep Rapid POSITIVE H PD MEDICAL DECISION MAKING - ED course Complexity details: reviewed results, re-evaluated patient, considered differential, d/w patient ED course: 44-year-old female with a sore throat has uvulitis. 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 Her rapid strep is positive. Departure - Departure Disposition: 01 Home, Self Care Clinical Impression: Uvulitis, Strep pharyngitis Condition: Stable Instructions: ED Strep Pharyngitis Conf, ED Uvulitis Follow-Up: Ruth Vidal MD [Primary Care Provider] - Prescriptions: cefUROXime axetiL [Ceftin] 500 mg PO Q12H #20 tablet Forms: Activity restrictions
[2020-02-14 08:52] LABS: RAPID STREP SCREEN POSITIVE (Negative)
== END 2020-02-14 09:25 | disposition home or self-care (01) ==
LOC: ED 07:52
DX: J02.0 Streptococcal pharyngitis (principal); K12.2 Cellulitis and abscess of mouth; Z88.0 Allergy status to penicillin; Z88.2 Allergy status to sulfonamides; Z20.828 Contact with and (suspected) exposure to other viral communicable diseases
CPT/HCPCS: 87430; 99282; 99283